=== PATIENT | male | born 1970 | race Caucasian/White ===

== ENCOUNTER 2023-06-30 14:00 | Inpatient (IN) | payer MEDICAID ==
[~2023-06-30] VITALS: Ht 162.6 cm; Wt 47.2 kg
[2023-06-30 14:00] VITALS: BP_SYST 149; PULSE 84; RESP 20; TEMP 97.7; O2SAT 99
[2023-06-30] MEDS: MORPHINE 4 MG INJ. 4 MG/ML VIAL IVP ONE ×2 (15:01→17:00)
[2023-06-30 15:59] LABS: HEMATOCRIT 32.2 % (36-54); HEMOGLOBIN 10.7 g/dL (14.0-18.0); MEAN CORPUSCULAR HEMOGLOBIN 31 pg (27-31); MEAN CORPUSCULAR HGB CONC 33 % (32-36); MEAN CORPUSCULAR VOLUME 94 fL (79.0-98.0); PLATELET COUNT (AUTO) 246 K/uL (130-430); RED BLOOD CELL COUNT(AUTO) 3.42 MIL/uL (4.2-6.2); RED CELL DISTRIBUTION WIDTH 15.5 % (9.0-15.0); WHITE BLOOD COUNT (AUTO) 8.6 K/uL (4.8-10.8)
[2023-06-30 16:04] LABS: CREATININE 9.67 mg/dL (0.55-1.30)
[2023-06-30 16:05] LABS: POTASSIUM 5.9 mmol/L (3.5-5.1)
[2023-06-30 16:11] LABS: PROTHROMBIN TIME 10.8 SECS (9.5-12.5)
[2023-06-30] MEDS: INSULIN REGULAR, HUMAN 10 UNITS/0.1 ML, 3 ML VIAL IVP ONE (16:45)
[2023-06-30] MEDS: DEXTROSE 50% JECT 50 ML DISP.SYRIN IVP ONE (16:45)
[2023-06-30] MEDS: CALCIUM GLUC 1 GM/100ML-NACL 100 ML IV ONE (16:45)
[2023-06-30] MEDS ORDERED: FER300L GT (17:02)
[2023-06-30] MEDS ORDERED: SEVE800T8 GT (17:02)
[2023-06-30] MEDS ORDERED: ASCO500T20 PO (17:02)
[2023-06-30] MEDS ORDERED: CALC667T6 PO (17:02)
[2023-06-30] MEDS ORDERED: NIFE-129 GT (17:02)
[2023-06-30] MEDS ORDERED: VITD2000 GT (17:02)
[2023-06-30] MEDS ORDERED: TRAM50TA2 GT (17:02)
[2023-06-30] MEDS ORDERED: INSU100V44 SQ (17:02)
[2023-06-30] MEDS ORDERED: OXYIR5 GT (17:02)
[2023-06-30] MEDS ORDERED: NEPH GT (17:02)
[2023-06-30] MEDS ORDERED: PATI8.4P GT (17:02)
[2023-06-30] MEDS ORDERED: LOPE2CAP GT (17:02)
[2023-06-30] MEDS ORDERED: CYAN100010 GT (17:02)
[2023-06-30] MEDS: SODIUM ZIRCONIUM CYCLOSILICATE 10 GM POWD.PACK PO ONE (17:42)
[2023-06-30] MEDS ORDERED: NALOXONE HCL 0.4 MG/ML AMP (NARCAN) IVP PRN (18:00)
[2023-06-30 19:46] LABS: BAND % (MANUAL) 2 % (0-6); LYMPHOCYTES % (MANUAL) 42 % (20-46)
[2023-06-30 19:47] LABS: BASOPHILS % (MANUAL) 0 % (0-2); EOSINOPHILS % (MANUAL) 0 % (0-7); MONOCYTES % (MANUAL) 15 % (0-11); PLATELET ESTIMATE ADEQUATE (ADEQUATE)
[2023-06-30 19:48] LABS: ANISOCYTOSIS 1+
[2023-06-30 19:49] LABS: OVALOCYTES MODERATE; TEAR DROP CELLS FEW
[2023-06-30] MEDS: MIDODRINE HCL 5 MG TABLET (PROAMATINE) PO ONE (20:30)
[2023-06-30] MEDS: NS 500 ML IV ONE (21:00)
[2023-06-30] MEDS ORDERED: oxyCODONE HCL 5 MG TABLET GT PRN (23:00)
[2023-06-30] MEDS ORDERED: LOPERAMIDE HCL 2 MG CAPSULE GT SCH (23:00)
[2023-06-30] MEDS ORDERED: ONDANSETRON HCL 4 MG/2 ML VIAL IVP PRN (23:00)
[2023-06-30] MEDS ORDERED: LORazepam 2 MG/ML VIAL IVP PRN (23:00)
[2023-07-01] MEDS: traMADol HCL HCL 50 MG TABLET (ULTRAM) GT PRN (02:30)
[2023-07-01 05:18] LABS: BASOPHILS # (AUTO) 0.1 K/uL (0.0-0.2); BASOPHILS % (AUTO) 0.8 % (0.0-2.0); HEMOGLOBIN 8.6 g/dL (14.0-18.0); LYMPHOCYTES # (AUTO) 2.2 K/uL (1.0-5.5); LYMPHOCYTES % (AUTO) 18.8 % (20.5-51.5); MEAN CORPUSCULAR HEMOGLOBIN 31 pg (27-31); MEAN CORPUSCULAR HGB CONC 33 % (32-36); MEAN CORPUSCULAR VOLUME 95 fL (79.0-98.0); MONOCYTES # (AUTO) 1.8 K/uL (0.0-1.0); MONOCYTES % (AUTO) 15.3 % (1.7-9.3); NEUTROPHILS # (AUTO) 7.5 K/uL (1.8-7.7); NEUTROPHILS % (AUTO) 65.1 % (40.0-70.0); PLATELET COUNT (AUTO) 218 K/uL (130-430); RED BLOOD CELL COUNT(AUTO) 2.75 MIL/uL (4.2-6.2); RED CELL DISTRIBUTION WIDTH 15.4 % (9.0-15.0); WHITE BLOOD COUNT (AUTO) 11.5 K/uL (4.8-10.8)
[2023-07-01 05:46] LABS: CALCIUM 7.9 mg/dL (8.4-11.0); PHOSPHORUS 8.9 mg/dL (2.7-4.5)
[2023-07-01] MEDS: NORMAL SALINE 5 ML DISP.SYRIN IVF SCH (06:00)
[2023-07-01] MEDS: MORPHINE 4 MG INJ. 4 MG/ML VIAL IVP PRN (06:00)
[2023-07-01 06:08] LABS: CREATININE 10.64 mg/dL (0.55-1.30); POTASSIUM 6.1 mmol/L (3.5-5.1)
[2023-07-01] MEDS ORDERED: CALCIUM GLUCONATE 1 GM in NS 100 ML IV ONE (06:15)
[2023-07-01] MEDS ORDERED: DEXTROSE 50% JECT 50 ML DISP.SYRIN IVP ONE (06:15)
[2023-07-01] MEDS ORDERED: SODIUM BICARBONATE 8.4% JECT 50 MEQ/50 ML SYRINGE IVP ONE (06:15)
[2023-07-01] MEDS ORDERED: INSULIN REGULAR, HUMAN 10 UNITS/0.1 ML, 3 ML VIAL IVP ONE (06:15)
[2023-07-01] MEDS ORDERED: CALCIUM GLUC 1 GM/100ML-NACL 100 ML IV ONE (06:45)
[2023-07-01] MEDS ORDERED: ALBUTEROL SULFATE 0.083% 2.5 MG/3 ML VIAL.NEB INH ONE (07:04)
[2023-07-01 07:05] VITALS: O2SAT 98
[2023-07-01] MEDS: ALBUTEROL SULFATE 0.083% 2.5 MG/3 ML VIAL.NEB INH ONE (07:05)
[2023-07-01] MEDS ORDERED: FERROUS SULFATE 300 MG/5 ML UDC GT SCH (09:00)
[2023-07-01] MEDS ORDERED: CHOL100038 PO (10:38)
[2023-07-01] MEDS ORDERED: CYAN500T47 PO (10:38)
[2023-07-01] MEDS ORDERED: FERR-31 PO (10:38)
[2023-07-01] MEDS ORDERED: GABA-529 PO (10:38)
[2023-07-01] MEDS ORDERED: ERGO1250 PO (10:38)
[2023-07-01] MEDS ORDERED: INSU100V53 SQ (10:38)
[2023-07-01] MEDS ORDERED: TYLL650 PO (10:38)
[2023-07-01] MEDS ORDERED: NIFE-75 PO (10:38)
[2023-07-01] MEDS ORDERED: NALO4SPR NS (10:38)
[2023-07-01] MEDS ORDERED: GLUC1VIA14 IM (10:38)
[2023-07-01] MEDS: CALCIUM ACETATE 667 MG CAP GT SCH (12:00)
[2023-07-01] MEDS: SEVELAMER CARBONATE 800 MG TABLET GT SCH (15:00)
[2023-07-01] MEDS ORDERED: HYDROmorphone 1 MG/ML INJ. CARTRIDGE IV PRN (15:15)
[2023-07-01] MEDS: ASCORBIC ACID 500 MG TABLET GT SCH (15:28)
[2023-07-01] MEDS: CHOLECALCIFEROL (VITAMIN D3) 2,000 UNIT TABLET GT SCH (15:28)
[2023-07-01] MEDS: CYANOCOBALAMIN (VITAMIN B-12) 1,000 MCG TABLET GT SCH (15:29)
[2023-07-01] MEDS: NEPHROVITE, (FOLIC ACID/VITAMIN B COMP W-C 1 TAB) GT SCH (15:30)
[2023-07-01 17:01] VITALS: BP_SYST 116; PULSE 70; RESP 15; TEMP 97.4
[2023-07-01] MEDS: HYDROmorphone 1 MG/ML INJ. CARTRIDGE IVP PRN (17:51)
[2023-07-01] MEDS: INSULIN LISPRO SLIDING SCALE 100 UNITS/ML, 3 ML VIAL (humaLOG) SUBCUT PRN (18:03)
[2023-07-01 19:00] VITALS: BP_SYST 97; PULSE 89; RESP 18; TEMP 98.7; O2SAT 97
[2023-07-01 20:00] VITALS: BP_SYST 128; PULSE 87; RESP 18; TEMP 97.2; O2SAT 97
[2023-07-02] VITALS: BP_SYST 123; PULSE 74; RESP 18; TEMP 97.6; O2SAT 94
[2023-07-02 03:07] VITALS: BP_SYST 129
[2023-07-02 05:56] LABS: BASOPHILS # (AUTO) 0.1 K/uL (0.0-0.2); BASOPHILS % (AUTO) 0.5 % (0.0-2.0); EOSINOPHILS % (AUTO) 0.1 % (0.0-4.0); HEMATOCRIT 27.9 % (36-54); HEMOGLOBIN 9.3 g/dL (14.0-18.0); LYMPHOCYTES # (AUTO) 1.8 K/uL (1.0-5.5); LYMPHOCYTES % (AUTO) 16.8 % (20.5-51.5); MEAN CORPUSCULAR HEMOGLOBIN 31 pg (27-31); MEAN CORPUSCULAR HGB CONC 33 % (32-36); MEAN CORPUSCULAR VOLUME 93 fL (79.0-98.0); MONOCYTES # (AUTO) 1.2 K/uL (0.0-1.0); MONOCYTES % (AUTO) 11.5 % (1.7-9.3); NEUTROPHILS # (AUTO) 7.5 K/uL (1.8-7.7); NEUTROPHILS % (AUTO) 71.1 % (40.0-70.0); PLATELET COUNT (AUTO) 180 K/uL (130-430); RED CELL DISTRIBUTION WIDTH 15.2 % (9.0-15.0); WHITE BLOOD COUNT (AUTO) 10.6 K/uL (4.8-10.8)
[2023-07-02 06:00] LABS: ERYTHROCYTE SEDIMENTATION RATE 19 MM/HR (0-15)
[2023-07-02 06:39] LABS: CALCIUM 7.8 mg/dL (8.4-11.0); PHOSPHORUS 7.2 mg/dL (2.7-4.5); POTASSIUM 5.4 mmol/L (3.5-5.1); TOTAL BILIRUBIN 0.5 mg/dL (0.0-1.0)
[2023-07-02 07:14] LABS: CREATININE 8.07 mg/dL (0.55-1.30)
[2023-07-02 08:07] VITALS: BP_SYST 127; PULSE 96; RESP 16; TEMP 99; O2SAT 96
[2023-07-02] MEDS: MORPHINE 2 MG/ML INJ. SYRINGE IVP PRN (08:35)
[2023-07-02] MEDS: FERROUS SULFATE 300 MG/5 ML UDC GT SCH (10:56)
[2023-07-02 17:41] VITALS: BP_SYST 166; PULSE 102; RESP 18; TEMP 100.4; O2SAT 98
[2023-07-02 20:00] VITALS: BP_SYST 161; PULSE 96; RESP 16; TEMP 100.6; O2SAT 100
[2023-07-02] MEDS: HEPARIN SODIUM,PORCINE 5,000 UNITS/ML VIAL ONE (21:20)
[2023-07-03] VITALS (9 sets, daily range): BP systolic 109–165; PULSE 79–112; RESP 15–18; TEMP 97–102.9; O2SAT 96–100
[2023-07-03] MEDS: ACETAMINOPHEN 325 MG TABLET PO PRN (02:05)
[2023-07-03 04:45] LABS: BASOPHILS # (AUTO) 0.1 K/uL (0.0-0.2); BASOPHILS % (AUTO) 0.5 % (0.0-2.0); HEMATOCRIT 25.6 % (36-54); HEMOGLOBIN 8.6 g/dL (14.0-18.0); LYMPHOCYTES # (AUTO) 2.3 K/uL (1.0-5.5); LYMPHOCYTES % (AUTO) 19.6 % (20.5-51.5); MEAN CORPUSCULAR HEMOGLOBIN 31 pg (27-31); MEAN CORPUSCULAR HGB CONC 34 % (32-36); MEAN CORPUSCULAR VOLUME 93 fL (79.0-98.0); MONOCYTES # (AUTO) 1.6 K/uL (0.0-1.0); MONOCYTES % (AUTO) 13.2 % (1.7-9.3); NEUTROPHILS # (AUTO) 7.8 K/uL (1.8-7.7); NEUTROPHILS % (AUTO) 66.7 % (40.0-70.0); PLATELET COUNT (AUTO) 175 K/uL (130-430); RED BLOOD CELL COUNT(AUTO) 2.76 MIL/uL (4.2-6.2); RED CELL DISTRIBUTION WIDTH 14.9 % (9.0-15.0); WHITE BLOOD COUNT (AUTO) 11.8 K/uL (4.8-10.8)
[2023-07-03 04:51] LABS: CALCIUM 8.1 mg/dL (8.4-11.0); CREATININE 6.3 mg/dL (0.55-1.30); PHOSPHORUS 6.5 mg/dL (2.7-4.5); POTASSIUM 4.7 mmol/L (3.5-5.1)
[2023-07-03] MEDS ORDERED: LOPERAMIDE HCL 2 MG CAPSULE GT PRN (06:33)
[2023-07-03] MEDS: HYDROmorphone 2 MG/ML VIAL ONE (08:07)
[2023-07-03] MEDS ORDERED: TRANEXAMIC ACID 1,000 MG/10 ML VIAL ONE (08:15)
[2023-07-03] MEDS ORDERED: NS 1000 ML IV.SOLN IV ONE (08:15)
[2023-07-03] MEDS ORDERED: NS IRRIG SOLN 1000 ML IR ONE (08:15)
[2023-07-03] MEDS ORDERED: LIDOCAINE/EPI 1% 1:100000 20 ML VIAL ONE (08:15)
[2023-07-03] MEDS ORDERED: PROPOFOL 200MG/ 20ML VIAL (DIPRIVAN) IV ONE (08:15)
[2023-07-03] MEDS ORDERED: SEVOFLURANE 15 MIN GAS INH ONE (08:15)
[2023-07-03] MEDS ORDERED: PHENYLEPHRINE HCL 10 MG/ML VIAL (NEOSYNEPHRINE) ONE (08:15)
[2023-07-03] MEDS ORDERED: ePHEDrine sulfate 50 MG/ML VIAL ONE (08:15)
[2023-07-03] MEDS ORDERED: SUCCINYLCHOLINE CHLORIDE 20 MG/ML(QUELICIN) ONE (08:15)
[2023-07-03] MEDS ORDERED: BUPIVACAINE /PF 0.25% 30 ML VIAL INJ ONE (08:15)
[2023-07-03] MEDS ORDERED: CEFAZOLIN 1 GM IVPB PREMIX 50 ML IV ONE (08:15)
[2023-07-03] MEDS ORDERED: WATER FOR IRRIGATION,STERILE 1,000 ML IRRIG.SOLN IR ONE (08:15)
[2023-07-03] MEDS ORDERED: ONDANSETRON HCL 4 MG/2 ML VIAL ONE (08:15)
[2023-07-03] MEDS ORDERED: DEXAMETHASONE SOD PHOSPHATE 4 MG/ML VIAL ONE (08:15)
[2023-07-03] MEDS ORDERED: MORPHINE 4 MG INJ. 4 MG/ML VIAL IVP PRN ×2 (10:15)
[2023-07-03] MEDS ORDERED: NALOXONE HCL 0.4 MG/ML AMP (NARCAN) IVP PRN (10:15)
[2023-07-03] MEDS ORDERED: HYDROmorphone 1 MG/ML INJ. CARTRIDGE IVP PRN (10:15)
[2023-07-03] MEDS ORDERED: ONDANSETRON HCL 4 MG/2 ML VIAL IVP PRN (10:15)
[2023-07-03] MEDS: ceFAZolin SODIUM 2 GM in D5W 100 ML IV SCH (17:42)
[2023-07-03] MEDS: INSULIN GLARGINE 100 UNITS/ML, 10 ML VIAL SUBCUT SCH (21:00)
[2023-07-04] VITALS (7 sets, daily range): BP systolic 118–179; PULSE 18–97; RESP 16–20; TEMP 97.8–98; O2SAT 97–99
[2023-07-04] MEDS: HYDROmorphone 2 MG/ML VIAL IVP PRN (04:24)
[2023-07-04] MEDS: hydrALAZINE HCL 25 MG TABLET PO PRN (04:30)
[2023-07-04] MEDS: hydrALAZINE HCL 25 MG TABLET PO SCH (06:00)
[2023-07-04] MEDS ORDERED: metFORMIN HCL 500 MG TABLET PO SCH ×2 (09:00→18:00)
[2023-07-04] MEDS: CHOLECALCIFEROL (VITAMIN D3) 5,000 UNIT TABLET PO SCH (10:11)
[2023-07-04] MEDS ORDERED: NALOXONE HCL 0.4 MG/ML AMP (NARCAN) IVP PRN ×2 (10:45)
[2023-07-04] MEDS ORDERED: HYDROcodone/ACETAMIN 5-325 MG TAB (NORCO/ VICODIN) PO PRN (10:45)
[2023-07-04] MEDS: HYDROcodone/ACETAMIN 10-325 MG TAB PO PRN (12:43)
[2023-07-04] MEDS: GABAPENTIN 100 MG CAPSULE PO SCH (12:44)
[2023-07-04] MEDS: NIFEdipine 30 MG TAB.ER.24 PO SCH (22:30)
[2023-07-04] MEDS: INSULIN GLARGINE 100 UNITS/ML, 10 ML VIAL SQ SCH (22:38)
[2023-07-05] VITALS (7 sets, daily range): BP systolic 97–138; PULSE 89–103; RESP 16–18; TEMP 97.6–98.8; O2SAT 90–98
[2023-07-05] MEDS: HYDROmorphone 2 MG/ML VIAL IVP PRN (04:58)
[2023-07-05] MEDS ORDERED: DEXTROSE 50% JECT 50 ML DISP.SYRIN IVP PRN (06:45)
[2023-07-05] MEDS ORDERED: GLUCOSE (DEXTROSE) ORAL GEL -Adults PO PRN (06:45)
[2023-07-05] MEDS ORDERED: D5W 1,000 ML IV PRN (06:45)
[2023-07-05] MEDS: DEXTROSE 50% JECT 50 ML DISP.SYRIN ONE (07:07)
[2023-07-05 08:27] LABS: BASOPHILS % (AUTO) 0.2 % (0.0-2.0); EOSINOPHILS % (AUTO) 0.2 % (0.0-4.0); HEMATOCRIT 24.4 % (36-54); HEMOGLOBIN 8.2 g/dL (14.0-18.0); LYMPHOCYTES # (AUTO) 1.1 K/uL (1.0-5.5); LYMPHOCYTES % (AUTO) 8.3 % (20.5-51.5); MEAN CORPUSCULAR HEMOGLOBIN 31 pg (27-31); MEAN CORPUSCULAR HGB CONC 34 % (32-36); MEAN CORPUSCULAR VOLUME 93 fL (79.0-98.0); MONOCYTES # (AUTO) 1.5 K/uL (0.0-1.0); MONOCYTES % (AUTO) 11.1 % (1.7-9.3); NEUTROPHILS # (AUTO) 11.1 K/uL (1.8-7.7); NEUTROPHILS % (AUTO) 80.2 % (40.0-70.0); PLATELET COUNT (AUTO) 175 K/uL (130-430); RED BLOOD CELL COUNT(AUTO) 2.63 MIL/uL (4.2-6.2); RED CELL DISTRIBUTION WIDTH 15.4 % (9.0-15.0); WHITE BLOOD COUNT (AUTO) 13.8 K/uL (4.8-10.8)
[2023-07-05 08:41] LABS: ALBUMIN 2.3 g/dL (3.4-4.8); CALCIUM 7.9 mg/dL (8.4-11.0); PHOSPHORUS 8.6 mg/dL (2.7-4.5); POTASSIUM 5.6 mmol/L (3.5-5.1); TOTAL BILIRUBIN 0.4 mg/dL (0.0-1.0); TOTAL PROTEIN, SERUM 6.4 g/dL (6.4-8.3)
[2023-07-05] MEDS ORDERED: ERGOCALCIFEROL 1250 MCG PO SCH (09:00)
[2023-07-05] MEDS ORDERED: CYANOCOBALAMIN 500 MCG PO SCH (09:00)
[2023-07-05] MEDS ORDERED: CHOLECALCIFEROL 25 MCG PO SCH (09:00)
[2023-07-05 09:01] LABS: CREATININE 9.79 mg/dL (0.55-1.30)
[2023-07-05] MEDS ORDERED: ASCORBIC ACID 500 MG TABLET PO SCH (10:33)
[2023-07-05] MEDS ORDERED: NEPHROVITE, (FOLIC ACID/VITAMIN B COMP W-C 1 TAB) PO SCH (10:34)
[2023-07-05] MEDS ORDERED: FERROUS SULFATE 300 MG/5 ML UDC PO SCH (10:34)
[2023-07-05] MEDS ORDERED: CYANOCOBALAMIN (VITAMIN B-12) 1,000 MCG TABLET PO SCH (10:34)
[2023-07-05] MEDS ORDERED: LOPERAMIDE HCL 2 MG CAPSULE PO PRN (10:35)
[2023-07-05] MEDS ORDERED: oxyCODONE HCL 5 MG TABLET PO PRN (10:35)
[2023-07-05] MEDS ORDERED: traMADol HCL HCL 50 MG TABLET (ULTRAM) PO PRN (10:36)
[2023-07-05] MEDS: CALCIUM ACETATE 667 MG CAP PO SCH (12:40)
[2023-07-05] MEDS: SEVELAMER CARBONATE 800 MG TABLET PO SCH (16:30)
== END 2023-07-05 18:50 | DRG 308 ==
LOC: SED 14:00 → STU 17:21 → SMU 07-02 22:23
PROVIDERS: ADMIT Preventive Medicine Preventive Medicine/Occupational Environmental Medicine; ATTEND Preventive Medicine Preventive Medicine/Occupational Environmental Medicine
PROC: 5A1D70Z Performance of Urinary Filtration, Intermittent, Less than 6 Hours Per Day (ICD-10-PCS; 2023-06-30)
PROC: 5A1D70Z Performance of Urinary Filtration, Intermittent, Less than 6 Hours Per Day (ICD-10-PCS; 2023-07-01)
PROC: 5A1D70Z Performance of Urinary Filtration, Intermittent, Less than 6 Hours Per Day (ICD-10-PCS; 2023-07-02)
PROC: 0QSB04Z Reposition Right Lower Femur with Internal Fixation Device, Open Approach (ICD-10-PCS; 2023-07-03)
PROC: 30233N1 Transfusion of Nonautologous Red Blood Cells into Peripheral Vein, Percutaneous Approach (ICD-10-PCS; 2023-07-03)
PROC: 0QS804Z Reposition Right Femoral Shaft with Internal Fixation Device, Open Approach (ICD-10-PCS; principal; 2023-07-03 07:27)
PROC: 5A1D70Z Performance of Urinary Filtration, Intermittent, Less than 6 Hours Per Day (ICD-10-PCS; 2023-07-05)
DX: S72.401A Unspecified fracture of lower end of right femur, initial encounter for closed fracture (principal); R65.11 Systemic inflammatory response syndrome (SIRS) of non-infectious origin with acute organ dysfunction; E43 Unspecified severe protein-calorie malnutrition; E83.51 Hypocalcemia; D63.1 Anemia in chronic kidney disease; E83.39 Other disorders of phosphorus metabolism; I12.0 Hypertensive chronic kidney disease with stage 5 chronic kidney disease or end stage renal disease; E87.1 Hypo-osmolality and hyponatremia; E11.22 Type 2 diabetes mellitus with diabetic chronic kidney disease; S72.301A Unspecified fracture of shaft of right femur, initial encounter for closed fracture; E88.09 Other disorders of plasma-protein metabolism, not elsewhere classified; W01.0XXA Fall on same level from slipping, tripping and stumbling without subsequent striking against object, initial encounter; N18.6 End stage renal disease; E11.65 Type 2 diabetes mellitus with hyperglycemia; G89.4 Chronic pain syndrome; B95.62 Methicillin resistant Staphylococcus aureus infection as the cause of diseases classified elsewhere; E87.5 Hyperkalemia; Z99.2 Dependence on renal dialysis; Z89.511 Acquired absence of right leg below knee; Y93.89 Activity, other specified; Y92.89 Other specified places as the place of occurrence of the external cause; Y99.8 Other external cause status; Z68.1 Body mass index [BMI] 19.9 or less, adult
CPT/HCPCS: 36415; 71045; 72192-TC; 73502; 73552; 73700-TC; 76001; 76376; 80048; 80053; 82948; 83735; 84100; 85007; 85025; 85027; 85610; 85651; 85730; 86886; 86900; 86901; 86920; 87040; 87081; 90935; 90937; 93005; 93306; 94664; 94760; 97116-GP; 97530-GP; 99285; C1713; C1769; G0378; J0330; J0610; J0690; J1100; J1170; J1644; J1815; J2270; J2370; J2405; J2704; J3490; J7030; J7060; P9021